=== PATIENT | male | born 1955 | race Caucasian/White ===

== ENCOUNTER → 2018-02-18 09:15 | Outpatient (CLI) | payer MEDICARE, SELFPAY | PROVIDERS: PCP Internal Medicine; Visit Provider Nurse Practitioner Adult Health | DX: G43.009 Migraine without aura, not intractable, without status migrainosus (principal); M54.2 Cervicalgia; G89.29 Other chronic pain | CPT/HCPCS: 64405 ==

== ENCOUNTER → 2018-03-25 09:07 | Outpatient (BNVA) | payer MEDICARE, SELFPAY | PROVIDERS: PCP Internal Medicine; Visit Provider Nurse Practitioner Adult Health | DX: R51 Headache (principal); M54.2 Cervicalgia; G89.29 Other chronic pain | CPT/HCPCS: 64405; NC ==

== ENCOUNTER → 2018-04-22 08:57 | Outpatient (BNVA) | payer MEDICARE, SELFPAY | PROVIDERS: Visit Provider Nurse Practitioner Adult Health | DX: G43.009 Migraine without aura, not intractable, without status migrainosus (principal); M54.2 Cervicalgia; G89.29 Other chronic pain; I10 Essential (primary) hypertension | CPT/HCPCS: 64405 ==

== ENCOUNTER → 2018-05-27 13:35 | Outpatient (BNVA) | payer MEDICARE, SELFPAY | PROVIDERS: PCP Internal Medicine; Visit Provider Psychiatry & Neurology Neurology | DX: R51 Headache (principal); I10 Essential (primary) hypertension | CPT/HCPCS: 64405 ==

== ENCOUNTER → 2018-06-17 09:35 | Outpatient (BNVA) | payer MEDICARE, SELFPAY | PROVIDERS: PCP Internal Medicine; Visit Provider Psychiatry & Neurology Neurology | DX: R51 Headache (principal); I10 Essential (primary) hypertension | CPT/HCPCS: 64405 ==

== ENCOUNTER → 2018-07-07 12:43 | Outpatient (BNVA) | payer MEDICARE, SELFPAY | PROVIDERS: PCP Internal Medicine; Visit Provider Psychiatry & Neurology Neurology | DX: R51 Headache (principal); M54.2 Cervicalgia; I10 Essential (primary) hypertension | CPT/HCPCS: 64405; J1885 ==

== ENCOUNTER → 2018-08-11 11:03 | Outpatient (BNVA) | payer MEDICARE, SELFPAY | PROVIDERS: PCP Internal Medicine; Visit Provider Nurse Practitioner Adult Health | DX: R51 Headache (principal); I10 Essential (primary) hypertension | CPT/HCPCS: 64405 ==

== ENCOUNTER → 2018-09-08 09:29 | Outpatient (BNVA) | payer MEDICARE, SELFPAY | PROVIDERS: PCP Internal Medicine; Visit Provider Nurse Practitioner Adult Health | DX: R51 Headache (principal); G89.29 Other chronic pain; I10 Essential (primary) hypertension | CPT/HCPCS: 64405; 99213 ==

== ENCOUNTER → 2018-10-07 11:40 | Outpatient (BNVA) | payer MEDICARE, SELFPAY | PROVIDERS: PCP Internal Medicine; Visit Provider Nurse Practitioner Adult Health | DX: R51 Headache (principal) | CPT/HCPCS: 64405 ==

== ENCOUNTER → 2018-11-01 09:55 | Outpatient (BNVA) | payer MEDICARE, SELFPAY | PROVIDERS: PCP Internal Medicine; Visit Provider Nurse Practitioner Adult Health | DX: R51 Headache (principal); M54.2 Cervicalgia | CPT/HCPCS: 64405 ==

== ENCOUNTER → 2018-12-01 13:01 | Outpatient (BNVA) | payer MEDICARE, SELFPAY | PROVIDERS: PCP Internal Medicine; Visit Provider Nurse Practitioner Adult Health | DX: R51 Headache (principal); M54.2 Cervicalgia | CPT/HCPCS: 64405 ==

== ENCOUNTER → 2019-01-12 09:05 | Outpatient (BNVA) | payer MEDICARE, SELFPAY | PROVIDERS: PCP Internal Medicine; Visit Provider Nurse Practitioner Adult Health | DX: R51 Headache (principal); M54.2 Cervicalgia | CPT/HCPCS: 64405 ==

== ENCOUNTER → 2019-02-07 12:53 | Outpatient (BNVA) | payer MEDICARE, SELFPAY | PROVIDERS: PCP Internal Medicine; Visit Provider Nurse Practitioner Adult Health | DX: R51 Headache (principal); I10 Essential (primary) hypertension | CPT/HCPCS: 64405 ==

== ENCOUNTER → 2019-03-09 09:26 | Outpatient (BNVA) | payer MEDICARE, SELFPAY | PROVIDERS: PCP Internal Medicine; Visit Provider Nurse Practitioner Adult Health | DX: R51 Headache (principal); M54.2 Cervicalgia; I10 Essential (primary) hypertension | CPT/HCPCS: 64405 ==

== ENCOUNTER → 2019-04-05 09:11 | Outpatient (BNVA) | payer MEDICARE, SELFPAY | PROVIDERS: PCP Internal Medicine; Visit Provider Nurse Practitioner Adult Health | DX: R51 Headache (principal); M54.2 Cervicalgia | CPT/HCPCS: 64405 ==

== ENCOUNTER → 2019-05-03 12:22 | Outpatient (BNVA) | payer MEDICARE, SELFPAY | PROVIDERS: PCP Internal Medicine; Referring Provider Internal Medicine; Visit Provider Nurse Practitioner Adult Health | DX: R51 Headache (principal); M54.2 Cervicalgia; G89.29 Other chronic pain; I10 Essential (primary) hypertension | CPT/HCPCS: 64405 ==

== ENCOUNTER → 2019-05-31 09:49 | Outpatient (BNVA) | payer MEDICARE, SELFPAY | PROVIDERS: PCP Internal Medicine; Referring Provider Internal Medicine; Visit Provider Nurse Practitioner Adult Health | DX: G43.009 Migraine without aura, not intractable, without status migrainosus (principal); I10 Essential (primary) hypertension; M54.2 Cervicalgia | CPT/HCPCS: 64405 ==

== ENCOUNTER → 2019-07-06 09:00 | Outpatient (BNVA) | payer MEDICARE, SELFPAY | PROVIDERS: PCP Internal Medicine; Referring Provider Internal Medicine; Visit Provider Nurse Practitioner Adult Health | DX: M54.2 Cervicalgia (principal); G89.29 Other chronic pain; R51 Headache | CPT/HCPCS: 64405; 99213 ==

== ENCOUNTER → 2019-08-03 08:28 | Outpatient (BNVA) | payer MEDICARE, SELFPAY | PROVIDERS: PCP Internal Medicine; Referring Provider Internal Medicine; Visit Provider Nurse Practitioner Adult Health | DX: R51 Headache (principal); M54.2 Cervicalgia; G89.29 Other chronic pain | CPT/HCPCS: 64405 ==

== ENCOUNTER 2019-08-29 11:02 | Outpatient (REF) | payer MEDICARE, SELFPAY ==
[2019-08-29 11:59] LABS: Anion Gap 9.3 mmol/L (3-11); BUN 17 mg/dL (7-18); CO2 28.7 mmol/L (21.0-32.0); CREATININE 0.96 mg/dL (0.70-1.30); Chloride 102 mmol/L (98-107); Glucose 107 mg/dL (74-106); NT-proBNP 14 pg/mL (<300); Potassium 4.4 mmol/L (3.5-5.1); Sodium 140 mmol/L (136-145)
[2019-08-29 13:06] LABS: HCT 46.4 % (40.0-50.0); HGB 15.3 g/dL (13.5-17.5); Mean Corpuscular Hemoglobin 29.4 pg (27.0-33.0); Mean Corpuscular Volume 89.2 fL (80-95); Mean Platelet Volume 10.4 fL (8.0-11.0); Platelet Count 248 x1000/uL (130-400); RBC Distribution Width 13.3 % (11.8-14.1); White Blood Cell Count 6.36 k/cumm (4.4-10.8)
[2019-08-29 15:22] LABS: Hemoglobin A1C 5.9 % (3.8-5.6)
[2019-08-30 11:00] LABS: Hepatitis C Ab w Rflx HCV PCR Negative (Negative)
== END 2019-08-29 11:22 ==
LOC: NCHCN 11:02
PROVIDERS: PCP Internal Medicine; Visit Provider Internal Medicine
DX: I25.10 Atherosclerotic heart disease of native coronary artery without angina pectoris (principal); R06.09 Other forms of dyspnea; R73.09 Other abnormal glucose; G62.9 Polyneuropathy, unspecified; M19.031 Primary osteoarthritis, right wrist; M50.10 Cervical disc disorder with radiculopathy, unspecified cervical region; M19.032 Primary osteoarthritis, left wrist
CPT/HCPCS: 80048; 85027; 86803; 83036; 83880

== ENCOUNTER → 2019-08-31 08:45 | Outpatient (BNVA) | payer MEDICARE, SELFPAY | PROVIDERS: PCP Internal Medicine; Referring Provider Internal Medicine; Visit Provider Nurse Practitioner Adult Health | DX: R51 Headache (principal); M54.2 Cervicalgia; G89.29 Other chronic pain | CPT/HCPCS: 64405 ==

== ENCOUNTER 2019-09-26 16:06 | Outpatient (REF) | payer MEDICARE, SELFPAY ==
[2019-09-26 20:59] LABS: Bacteria Negative HPF (Negative); C & S Indicated? No; Casts Negative LPF (Negative); Crystals Negative HPF (Negative); Epithelial Cells Rare HPF (Negative); Mucus Negative (Negative); Other Cells Negative (Negative); RBC 0-2 HPF (0-2); WBC 0-2 HPF (0-5)
== END 2019-09-26 16:26 ==
LOC: NCHCN 16:06
PROVIDERS: PCP Internal Medicine; Visit Provider Specialist/Technologist Athletic Trainer
DX: R10.9 Unspecified abdominal pain (principal)
CPT/HCPCS: 81015

== ENCOUNTER → 2019-09-28 08:14 | Outpatient (BNVA) | payer MEDICARE, SELFPAY | PROVIDERS: PCP Internal Medicine; Referring Provider Internal Medicine; Visit Provider Nurse Practitioner Adult Health | DX: M54.2 Cervicalgia (principal); G89.29 Other chronic pain; R51 Headache; I10 Essential (primary) hypertension | CPT/HCPCS: 64405 ==

== ENCOUNTER → 2019-10-26 09:50 | Outpatient (BNVA) | payer MEDICARE, SELFPAY | PROVIDERS: PCP Internal Medicine; Referring Provider Internal Medicine; Visit Provider Nurse Practitioner Adult Health | DX: M54.2 Cervicalgia (principal); G89.29 Other chronic pain; R51 Headache; I10 Essential (primary) hypertension | CPT/HCPCS: 64405; 99212 ==

== ENCOUNTER 2019-11-13 08:53 | Emergency (ER) | payer MEDICARE, SELFPAY ==
[2019-11-13 08:59] VITALS: BP 149/97; PULSE 80; TEMP 37.1; O2SAT 100
--- NOTE | 2019-11-13 09:18 | ED.GENADUL_ITS ---
Discharge Plan Disposition Patient Disposition: HOME Condition: Stable Discharge Details Chief Complaint: Orthopedic Clinical Impression: Acute pain of right hip, Sciatica Primary Care Provider: Zack Edge ED Provider: Lucina Cortes Home Meds and New Rx's Prescriptions: New prednisone 20 mg tablet 40 mg PO DAILY Qty: 10 RF: 0 No Action hydrocodone-acetaminophen 1 EACH tablet 1 ea PO PRN RF: 0 nitroglycerin 0.4 MG tablet, sublingual 0.4 mg Sublingual PRNRF: 0 aspirin 81 MG tablet,chewable 81 mg CH DAILY RF: 0 docosahexaenoic acid-epa [Fish Oil] 1 EACH capsule 1,000 mg PO BID RF: 0 xgtyarmmdcem-Bb-nvhh-minerals [ESSENTIAL Daily] 1 EACH tablet 1 ea PO DAILY RF: 0 glucosamine sulf-chondroitinSA 1 EACH capsule RF: 0 gabapentin 800 MG tablet 800 mg PO TID RF: 0 metoprolol succinate 25 MG tablet extended release 24 hr 25 mg PO HS RF: 0 amitriptyline 25 MG tablet 25 mg PO QPM Qty: 90 RF: 0 Discharge Instructions Instructions: Sciatica (ED), Leg Pain (ED) Additional Instructions: Ice to the hip as discussed 3-5 times a day for 15 minutes daily. Rest activities as tolerated. Stretching as tolerated. Use steroid as prescribed with food for inflammatory pain as discussed. Use only for 5 days. This can cause difficulty sleeping and agitation as discussed. Your x-rays do reveal mild degenerative changes in both hips and your lower back. Recheck with PCP if not improving in the next 5 days. Continue your gabapentin and pain medication as needed as previously prescribed. Return for any worsening, concerns or alarming symptoms as discussed sooner if needed. Specifically observe for any weakness in the leg, difficulty walking, inability to lift your foot, severe intolerable pain or worsening numbness. Medical Decision Making Is a 63-year-old patient presenting to the emergency room for complaints of right hip pain which began in the last 2 weeks after beginning a walking regimen. Patient reporting right lateral hip pain with radiation to the thigh. No radiation beyond the knee initially noted. Denies new numbness, tingling or weakness. History of peripheral neuropathy as a baseline seemingly unchanged. Patient reports after walking on hard level ground he found pain was significantly worse when ambulating and thereafter lasting approximately 1 day then improving on day 3 and he would walk again in the cycle of return. Patient has found that pain is minimal or significantly improved when walking on uneven ground which is softer. Patient denies any specific fall injury or trauma. Patient reports that in the last 3 days pain has been more persistent. Patient reports increasing radiating pain in the last 3 days compared to onset a few weeks ago. Pain now radiating beyond the thigh including the knee and extending to the foot. Patient does have history of sciatica in the past. Patient does report transient swelling of his right ankle which has since improved. Patient reports he does take daily gabapentin as well as Vicodin. Patient has been compliant with these medications which are transiently helpful to improve pain. Patient has been able to sleep at night. Patient seeking evaluation due to persistence of pain. He did see chiropractic evaluation 2 days ago which was somewhat helpful, but not fully relieving of pain. On exam patient does have mild notable tenderness with palpation over the right hip with nothing to indicate infection of the hip, No overlying skin changes. Patient has no lumbar tenderness on exam. Patient does have diminished his reflexes at the patella level bilaterally which is symmetrical. Patient reports this is his baseline has been noted by PCP several times in the past. Patient does have history of peripheral neuropathy. Patient has no focal foot drop or indications of neurosurgical emergency at this time. Discussed plan of care did offer x-ray of the hip and patient consents to at this time. X-ray of the hip reveals bilateral degenerative changes of the hips including the lumbar spine. No evidence of acute fracture or malalignment or dislocation Discussed x-ray results with the patient. Did recommend a course of prednisone in addition to his regimen of gabapentin and Vicodin. We did discuss the risks and benefits of using prednisone and a short-term burst of 5 days. Also recommended rest and icing. We will patient agrees with current plan of care. Discussed expectations of improvement. Patient reports his understanding. Feels comfortable discharge home at this time. Patient using a single crutch for assistance and also has canes at home if needed. Patient feels comfortable these assistive modalities does not feel he needs any additional devices. The patient was stable and requested discharge. Prior to discharge, my usual and customary return precautions were reviewed with the patient - this included follow-up instructions and reasons to return to the Emergency Department if conditions worsens, does not improve as expected, or other new concerns arise. HPI General Date/Time Provider Initiated Documentation: 11/13/19 08:53 . HPI Narrative: Is a 63-year-old gentleman presenting for complaints of right hip pain. Patient reports onset of right hip pain for the last 2 weeks. Patient reports he began walking for exercise 2 weeks ago. Patient reports he had onset of right hip pain after walking approximately 1 to 2 miles. Patient reports pain would last approximately 1 day then improved fully then he would walk again and the cycle would repeat itself. Patient reports initially he had pain on the lateral aspect of his hip radiating into his buttocks and at the lateral aspect of his thigh sparing knee distally. Patient reports in the last 3 days pain has become more constant not fully relieving with increasing radiation including his lower leg and foot. Patient reports he is chronically using both gabapentin and Vicodin both of which she has been using, he has mildly increased his Vicodin dose for comfort. Patient reports these medications are helpful in providing some relief of pain and making pain more tolerable able to sleep at night. Patient is concerned with the persistence of pain lack of relief in the last few days. Patient denies any specific injury. Patient does report mild lower back pain. Patient does have chronic degenerative changes in multiple joints including his neck and back. Patient has had imaging of his cervical spine historically. Patient denies any hip imaging. Patient does report a history of peripheral neuropathy. Patient does report some increase in numbness in the right leg. Patient denies any focal weakness in the leg. He has been able to ambulate. No tripping gait. Patient denies obvious foot drop. Patient did see chiropractor 2 days ago with mild relief in pain. No fevers, chills, nausea, vomiting. No other concerns or complaints at this time. Related Data Home Medications Medication Instructions Recorded Confirmed aspirin 81 mg CH DAILY 09/17/12 05/27/18 docosahexaenoic acid-epa [Fish Oil] 1,000 mg PO BID 09/17/12 05/27/18 glucosamine sulf-chondroitinSA 09/17/12 05/27/18 xtluloywbfqv-Vv-ajjx-minerals 1 ea PO DAILY 09/17/12 05/27/18 [ESSENTIAL Daily] nitroglycerin 0.4 mg SUBLINGUAL PRN 09/17/12 05/27/18 gabapentin 800 mg PO TID 03/05/15 05/27/18 amitriptyline 25 mg PO QPM #90 tab 06/23/16 05/27/18 metoprolol succinate 25 mg PO HS 06/23/16 05/27/18 hydrocodone-acetaminophen 1 ea PO PRN tab-cap 03/16/17 05/27/18 prednisone 40 mg PO DAILY #10 tab 11/13/19 Previous Rx's Medication Instructions Recorded amitriptyline 25 mg PO QPM #90 tab 06/23/16 prednisone 40 mg PO DAILY #10 tab 11/13/19 Allergies Allergy/AdvReac Type Severity Reaction Status Date / Time ciprofloxacin Allergy Intermediate RASH/FEVER Unverified 11/13/19 09:07 doxepin AdvReac Severe Unverified 11/13/19 09:07 Metronidazole HCl AdvReac Severe Dizziness/L Unverified 11/13/19 09:07 [From Flagyl] ightheade codeine [Codeine] AdvReac Intermediate Nausea Unverified 11/13/19 09:07 gemfibrozil AdvReac Intermediate Skin Rash Unverified 11/13/19 09:07 Aftgatl-Nke-Lle Reductase AdvReac Intermediate MUSCLE PAIN Unverified 11/13/19 09:07 Inhibitor General Stated Complaint: Orthopedic ALISSA: 4 Review of Systems All systems reviewed & are unremarkable except as noted in HPI and below Constitutional Constitutional: Denies chills, Denies fatigue, Denies fever(s), Denies headache(s), Denies lethargy, Denies malaise and Denies weakness ENT Ears, Nose, Mouth, and Throat: Denies headache(s), Denies neck pain and Denies disequilibrium Musculoskeletal Musculoskeletal: Reports back pain (mild lower back pain), Denies deformity, Reports arthralgias, Denies joint swelling, Denies limited range of motion, Denies muscle weakness, Denies neck pain, Reports numbness, Reports radiating pain into limb, Denies stiffness, Denies tingling and Reports other (limping gait) Integumentary/Breasts Skin/Breast: Denies rash, Denies skin swelling and Denies wounds Neurologic Neurologic: Denies headache(s), Denies localized weakness, Reports numbness, Reports radicular pain, Denies tingling, Denies disequilibrium and Denies wea kness Endocrine Endocrine: Denies fatigue [facility] Medical History Bilateral carpal tunnel syndrome (Chronic) Cervical radiculopathy (Chronic) Chronic daily headache (Chronic) Chronic neck and back pain (Chronic) Chronic neck pain (Acute) Colon polyps (Inactive) 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 Well hydrated. Alert and oriented. Neck: FROM w/o pain. MUSCULOSKELETAL: limping Gait, using assisted crutch. FROM of all extremities. Distal neurovascularly intact. Sensation intact distally. No sciatic tenderness with palpation of sciatic notch. Tenderness with palpation of the right lat eral hip overlying the joint. No erythema warmth or swelling present at the hip joint. Full range of motion present in the right hip. Mild pain with straight leg raise against resistance in lateral range of motion against resistance. Able to internally and externally rotate without significant pain. Strength intact distally. No foot drop. DTRs are diminished bilaterally at the patella however this is well known to the patient. No distal edema. Back: No cervical, thoracic or lumbar pain with palpation. No significant SI joint tenderness. SKIN: Normal. Dry. No rashes. Few areas of excoriation noted at the ankle and lateral ambriz however patient reports this is chronic due to his neuropathy and unchanged. No sign of secondary infection NEURO: Alert and awake. Speech clear. PSYCH: Normal affect. Cooperative. Course Vital Signs Vital signs: Vital Signs Temperature 37.1 C 11/13/19 08:59 Pulse 80 11/13/19 08:59 Blood Pressure 149/97 H 11/13/19 08:59 Pulse Oximetry 100 11/13/19 08:59 Temperature 37.1 C 11/13/19 08:59 Temperature Source Oral 11/13/19 08:59 Pulse 80 11/13/19 08:59 Respiratory Effort Non-Labored 11/13/19 09:05 Blood Pressure 149/97 H 11/13/19 08:59 Blood Pressure Position Sitting 11/13/19 08:59 Pulse Oximetry 100 11/13/19 08:59 Oxygen Delivery Method Room Air 11/13/19 08:59 Oxygen Flow Rate 0 11/13/19 08:59 Pain Level 10 11/13/19 09:06
--- NOTE | 2019-11-13 09:25 | DI.RAD_ITS ---
EXAM: XR HIP RT COMPLETE AP PELVIS CLINICAL HISTORY: pain, right hip. TECHNIQUE: 2D digital imaging was performed. COMPARISON: No exams were available for comparison FINDINGS: BONES: No acute fracture is present. No bony destructive lesion is seen. JOINTS: No dislocation present. Mild degenerative changes are seen in the hips bilaterally. Findings include joint space narrowing, subchondral sclerosis and periarticular spurring. There are degenera tive changes seen in the visualized portion of the lower lumbar spine. SOFT TISSUE: Normal. Vascular calcifications are seen in the soft tissues. IMPRESSION: 1. No acute fracture or dislocation. 2. Degenerative changes seen in the hips and lower lumbar spine. DATA REPOSITORY: RADIATION DOSE DELIVERED:
--- NOTE | 2019-11-13 09:36 | DI.VRAD_ITS ---
PROCEDURE INFORMATION: Exam: XR Right Hip with Pelvis when Performed Exam date and time: 11/13/2019 9:28 AM Age: 63 years old Clinical indication: Patient HX: Right hip pain, no known injury, ongoing hip pain since June, increasing RT hip pain. TECHNIQUE: Imaging protocol: XR Right hip with pelvis when performed. Views: 2 or 3 views. COMPARISON: CT ABD PELVIS WITH CONTRAST 01/29/2015 10:31 AM FINDINGS: Bones/joints: Degenerative changes in both hips and lumbar spine There is no evidence of acute fracture.There is no evidence of malalignment or dislocation. Soft tissues: Unremarkable. IMPRESSION: There is no evidence of acute fracture.There is no evidence of malalignment or dislocation. Dictated and Authenticated by: Leonides Fermin MD. Ordering:MICHELLE Verdugo MD
== END 2019-11-13 10:34 | disposition home or self-care (01) ==
PROVIDERS: Emergency Provider Physician Assistant; PCP Internal Medicine
DX: M25.551 Pain in right hip (principal); M54.41 Lumbago with sciatica, right side; I10 Essential (primary) hypertension
CPT/HCPCS: 99284; 73502; 99283

== ENCOUNTER → 2019-11-23 10:08 | Outpatient (BNVA) | payer MEDICARE, SELFPAY | PROVIDERS: PCP Internal Medicine; Referring Provider Internal Medicine; Visit Provider Nurse Practitioner Adult Health | DX: M54.2 Cervicalgia (principal); G89.29 Other chronic pain; R51 Headache | CPT/HCPCS: 64405 ==

== ENCOUNTER → 2019-12-21 10:10 | Outpatient (BNVA) | payer MEDICARE, SELFPAY | PROVIDERS: PCP Internal Medicine; Referring Provider Internal Medicine; Visit Provider Nurse Practitioner Adult Health | DX: R51 Headache (principal); M54.2 Cervicalgia; G89.29 Other chronic pain; I10 Essential (primary) hypertension | CPT/HCPCS: 64405; 99213 ==

== ENCOUNTER → 2020-01-18 08:16 | Outpatient (BNVA) | payer MEDICARE, SELFPAY | PROVIDERS: PCP Internal Medicine; Referring Provider Internal Medicine; Visit Provider Nurse Practitioner Adult Health | DX: M54.2 Cervicalgia (principal); G89.29 Other chronic pain; R51 Headache | CPT/HCPCS: 64405 ==

== ENCOUNTER → 2020-02-07 08:22 | Outpatient (BNVA) | payer MEDICARE, SELFPAY | PROVIDERS: PCP Internal Medicine; Referring Provider Internal Medicine; Visit Provider Nurse Practitioner Adult Health | DX: M54.2 Cervicalgia (principal); R51 Headache; G89.29 Other chronic pain | CPT/HCPCS: 64405 ==

== ENCOUNTER → 2020-03-06 08:51 | Outpatient (BNVA) | payer MEDICARE, SELFPAY | PROVIDERS: PCP Internal Medicine; Referring Provider Internal Medicine; Visit Provider Nurse Practitioner Adult Health | DX: M54.2 Cervicalgia (principal); I10 Essential (primary) hypertension; G89.29 Other chronic pain | CPT/HCPCS: 64405 ==

== ENCOUNTER → 2020-04-04 08:24 | Outpatient (BNVA) | payer MEDICARE, SELFPAY | PROVIDERS: PCP Internal Medicine; Referring Provider Internal Medicine; Visit Provider Nurse Practitioner Adult Health | DX: R51 Headache (principal); M54.2 Cervicalgia; G89.29 Other chronic pain | CPT/HCPCS: 64405 ==

== ENCOUNTER → 2020-05-03 12:22 | Outpatient (BNVA) | payer MEDICARE, SELFPAY | PROVIDERS: PCP Internal Medicine; Referring Provider Internal Medicine; Visit Provider Nurse Practitioner Adult Health | DX: M54.2 Cervicalgia (principal); G89.29 Other chronic pain | CPT/HCPCS: 64405 ==

== ENCOUNTER → 2020-05-29 10:24 | Outpatient (BNVA) | payer MEDICARE, SELFPAY | PROVIDERS: PCP Internal Medicine; Referring Provider Internal Medicine; Visit Provider Nurse Practitioner Adult Health | DX: M54.2 Cervicalgia (principal); G89.29 Other chronic pain; R51 Headache; I10 Essential (primary) hypertension | CPT/HCPCS: 64405 ==

== ENCOUNTER → 2020-07-02 11:03 | Outpatient (BNVA) | payer MEDICARE, SELFPAY | PROVIDERS: PCP Internal Medicine; Referring Provider Internal Medicine; Visit Provider Nurse Practitioner Adult Health | DX: M54.2 Cervicalgia (principal); G89.29 Other chronic pain; R51 Headache; R20.2 Paresthesia of skin | CPT/HCPCS: 64405; 99213 ==

== ENCOUNTER → 2020-08-01 10:19 | Outpatient (BNVA) | payer MEDICARE, SELFPAY | PROVIDERS: PCP Internal Medicine; Referring Provider Internal Medicine; Visit Provider Nurse Practitioner Adult Health | DX: M54.2 Cervicalgia (principal); G89.29 Other chronic pain; R20.2 Paresthesia of skin; G62.9 Polyneuropathy, unspecified | CPT/HCPCS: 64405; 99214; 99215 ==

== ENCOUNTER 2020-09-03 16:24 | Outpatient (REF) | payer MEDICARE, SELFPAY ==
[2020-09-03 13:47] LABS: Hemoglobin A1C 5.8 % (<5.7)
== END 2020-09-03 16:25 | disposition home or self-care (01) ==
LOC: NCHCN 16:24
PROVIDERS: PCP Internal Medicine; Visit Provider Internal Medicine
DX: R73.03 Prediabetes (principal)
CPT/HCPCS: 83036

== ENCOUNTER → 2020-09-04 09:54 | Outpatient (BNVA) | payer MEDICARE, SELFPAY | PROVIDERS: PCP Internal Medicine; Referring Provider Internal Medicine; Visit Provider Nurse Practitioner Adult Health | DX: M54.2 Cervicalgia (principal); G89.29 Other chronic pain; R51.9 Headache, unspecified | CPT/HCPCS: 64405 ==

== ENCOUNTER → 2020-10-02 13:21 | Outpatient (BNVA) | payer MEDICARE, SELFPAY | PROVIDERS: PCP Internal Medicine; Referring Provider Internal Medicine; Visit Provider Nurse Practitioner Adult Health | DX: M54.2 Cervicalgia (principal); G89.29 Other chronic pain | CPT/HCPCS: 64405 ==

== ENCOUNTER → 2020-10-31 14:02 | Outpatient (BNVA) | payer MEDICARE, SELFPAY | PROVIDERS: PCP Internal Medicine; Referring Provider Internal Medicine; Visit Provider Nurse Practitioner Adult Health | DX: M54.2 Cervicalgia (principal); G89.29 Other chronic pain | CPT/HCPCS: 64405 ==

== ENCOUNTER → 2020-11-28 10:53 | Outpatient (BNVA) | payer MEDICARE, SELFPAY | PROVIDERS: PCP Internal Medicine; Referring Provider Internal Medicine; Visit Provider Nurse Practitioner Adult Health | DX: G44.209 Tension-type headache, unspecified, not intractable | CPT/HCPCS: 64405 ==

== ENCOUNTER → 2020-12-26 09:53 | Outpatient (BNVA) | payer MEDICARE, SELFPAY | PROVIDERS: PCP Internal Medicine; Referring Provider Internal Medicine; Visit Provider Nurse Practitioner Adult Health | DX: R51.9 Headache, unspecified (principal); G89.29 Other chronic pain | CPT/HCPCS: 64405 ==

== ENCOUNTER → 2021-01-23 14:23 | Outpatient (BNVA) | payer MEDICARE, SELFPAY | PROVIDERS: PCP Internal Medicine; Referring Provider Internal Medicine; Visit Provider Nurse Practitioner Adult Health | DX: R51.9 Headache, unspecified (principal) | CPT/HCPCS: 64405 ==

== ENCOUNTER → 2021-03-04 08:18 | Outpatient (BNVA) | payer MEDICARE, SELFPAY | PROVIDERS: PCP Internal Medicine; Referring Provider Internal Medicine; Visit Provider Nurse Practitioner Adult Health | DX: R51.9 Headache, unspecified (principal); M54.5 Low back pain; G89.29 Other chronic pain | CPT/HCPCS: 64405 ==

== ENCOUNTER → 2021-04-01 08:18 | Outpatient (BNVA) | payer MEDICARE, SELFPAY | PROVIDERS: PCP Internal Medicine; Referring Provider Internal Medicine; Visit Provider Nurse Practitioner Adult Health | DX: G44.1 Vascular headache, not elsewhere classified (principal) | CPT/HCPCS: 64405 ==

== ENCOUNTER → 2021-04-30 08:35 | Outpatient (BNVA) | payer MEDICARE, SELFPAY | PROVIDERS: PCP Internal Medicine; Referring Provider Internal Medicine; Visit Provider Psychiatry & Neurology Neurology | DX: M54.2 Cervicalgia (principal); G89.29 Other chronic pain | CPT/HCPCS: 64405 ==

== ENCOUNTER → 2021-05-28 08:08 | Outpatient (BNVA) | payer MEDICARE, SELFPAY | PROVIDERS: PCP Internal Medicine; Referring Provider Internal Medicine; Visit Provider Psychiatry & Neurology Neurology | DX: M54.2 Cervicalgia (principal); G89.29 Other chronic pain | CPT/HCPCS: 64405 ==

== ENCOUNTER → 2021-06-24 12:30 | Outpatient (BNVA) | payer MEDICARE, SELFPAY | PROVIDERS: PCP Internal Medicine; Referring Provider Internal Medicine; Visit Provider Psychiatry & Neurology Neurology | DX: M54.2 Cervicalgia (principal); G89.29 Other chronic pain | CPT/HCPCS: 64405 ==

== ENCOUNTER → 2021-07-22 11:05 | Outpatient (BNVA) | payer OTHER, SELFPAY | PROVIDERS: PCP Internal Medicine; Referring Provider Internal Medicine; Visit Provider Psychiatry & Neurology Neurology | DX: M54.2 Cervicalgia (principal); G89.29 Other chronic pain; R51.9 Headache, unspecified | CPT/HCPCS: 64405 ==

== ENCOUNTER → 2021-07-31 10:53 | Outpatient (BNVA) | payer OTHER, SELFPAY | PROVIDERS: PCP Internal Medicine; Referring Provider Internal Medicine; Visit Provider Nurse Practitioner Adult Health | DX: M54.2 Cervicalgia (principal); R51.9 Headache, unspecified; G89.29 Other chronic pain | CPT/HCPCS: 64405; 99213 ==

== ENCOUNTER → 2021-08-22 10:52 | Outpatient (BNVA) | payer OTHER, SELFPAY | PROVIDERS: PCP Internal Medicine; Referring Provider Internal Medicine; Visit Provider Nurse Practitioner Adult Health | DX: M54.2 Cervicalgia (principal); G89.29 Other chronic pain | CPT/HCPCS: 64405 ==

== ENCOUNTER 2021-09-18 15:41 | Outpatient (REF) | payer OTHER, SELFPAY ==
[2021-09-18 14:10] LABS: Anion Gap 8.1 mmol/L (3-11); BUN 9 mg/dL (7-18); CO2 29.9 mmol/L (21.0-32.0); CREATININE 0.9 mg/dL (0.70-1.30); Calcium 9.7 mg/dL (8.5-10.1); Chloride 103 mmol/L (98-107); Glucose 106 mg/dL (74-106); Potassium 5.7 mmol/L (3.5-5.1); Sodium 141 mmol/L (136-145)
[2021-09-18 15:08] LABS: Hemoglobin A1C 5.8 % (<5.7)
== END 2021-09-18 15:42 | disposition home or self-care (01) ==
LOC: NCHCN 15:41
PROVIDERS: PCP Internal Medicine; Visit Provider Internal Medicine
DX: R73.03 Prediabetes (principal); I25.10 Atherosclerotic heart disease of native coronary artery without angina pectoris; R03.0 Elevated blood-pressure reading, without diagnosis of hypertension; M50.10 Cervical disc disorder with radiculopathy, unspecified cervical region; M19.039 Primary osteoarthritis, unspecified wrist
CPT/HCPCS: 80048; 83036

== ENCOUNTER → 2021-09-19 10:43 | Outpatient (BNVA) | payer OTHER, SELFPAY | PROVIDERS: PCP Internal Medicine; Visit Provider Nurse Practitioner Adult Health | DX: R51.9 Headache, unspecified (principal); G89.29 Other chronic pain | CPT/HCPCS: 64405 ==

== ENCOUNTER 2021-10-02 14:36 | Outpatient (REF) | payer OTHER, SELFPAY ==
[2021-10-02 15:21] LABS: Potassium 5.5 mmol/L (3.5-5.1)
== END 2021-10-02 14:37 | disposition home or self-care (01) ==
LOC: NCHCN 14:36
PROVIDERS: PCP Internal Medicine; Visit Provider Internal Medicine
DX: R03.0 Elevated blood-pressure reading, without diagnosis of hypertension (principal)
CPT/HCPCS: 84132

== ENCOUNTER → 2021-10-17 09:19 | Outpatient (BNVA) | payer OTHER, SELFPAY | PROVIDERS: PCP Internal Medicine; Visit Provider Nurse Practitioner Adult Health | DX: R51.9 Headache, unspecified (principal); M54.2 Cervicalgia; G89.29 Other chronic pain | CPT/HCPCS: 64405 ==

== ENCOUNTER → 2021-11-14 12:24 | Outpatient (BNVA) | payer OTHER, SELFPAY | PROVIDERS: PCP Internal Medicine; Referring Provider Internal Medicine; Visit Provider Nurse Practitioner Adult Health | DX: R51.9 Headache, unspecified (principal); M54.2 Cervicalgia; G89.29 Other chronic pain | CPT/HCPCS: 64405; 99212 ==

== ENCOUNTER → 2021-12-12 15:08 | Outpatient (BNVA) | payer OTHER, SELFPAY | PROVIDERS: PCP Internal Medicine; Referring Provider Internal Medicine; Visit Provider Nurse Practitioner Adult Health | DX: M54.2 Cervicalgia (principal); G89.29 Other chronic pain | CPT/HCPCS: 64405; 99212 ==

== ENCOUNTER 2021-12-23 10:32 | Outpatient (REF) | payer OTHER, SELFPAY ==
[2021-12-23 15:22] LABS: Anion Gap 10.4 mmol/L (3-11); BUN 15 mg/dL (7-18); CO2 28.6 mmol/L (21.0-32.0); CREATININE 0.8 mg/dL (0.70-1.30); Calcium 9.4 mg/dL (8.5-10.1); Chloride 102 mmol/L (98-107); Glucose 107 mg/dL (74-106); Potassium 5.6 mmol/L (3.5-5.1); Sodium 141 mmol/L (136-145)
== END 2021-12-23 10:33 | disposition home or self-care (01) ==
LOC: NCHCN 10:32
PROVIDERS: PCP Internal Medicine; Visit Provider Internal Medicine
DX: I25.10 Atherosclerotic heart disease of native coronary artery without angina pectoris (principal); R03.0 Elevated blood-pressure reading, without diagnosis of hypertension; R51.9 Headache, unspecified
CPT/HCPCS: 80048

== ENCOUNTER → 2022-01-09 08:49 | Outpatient (BNVA) | payer OTHER, SELFPAY | PROVIDERS: PCP Internal Medicine; Referring Provider Internal Medicine; Visit Provider Nurse Practitioner Adult Health | DX: M54.2 Cervicalgia (principal); G89.29 Other chronic pain | CPT/HCPCS: 64405 ==

== ENCOUNTER → 2022-02-06 10:26 | Outpatient (BNVA) | payer OTHER, SELFPAY | PROVIDERS: PCP Internal Medicine; Referring Provider Internal Medicine; Visit Provider Nurse Practitioner Adult Health | DX: R51.9 Headache, unspecified (principal); M54.2 Cervicalgia; G89.29 Other chronic pain | CPT/HCPCS: 64405 ==

== ENCOUNTER → 2022-03-13 13:58 | Outpatient (BNVA) | payer OTHER, SELFPAY | PROVIDERS: PCP Internal Medicine; Referring Provider Internal Medicine; Visit Provider Nurse Practitioner Adult Health | DX: M54.2 Cervicalgia (principal); G89.29 Other chronic pain | CPT/HCPCS: 64405 ==

== ENCOUNTER → 2022-04-09 09:21 | Outpatient (BNVA) | payer OTHER, SELFPAY | PROVIDERS: PCP Internal Medicine; Referring Provider Internal Medicine; Visit Provider Nurse Practitioner Adult Health | DX: M54.2 Cervicalgia (principal); G89.29 Other chronic pain | CPT/HCPCS: 64405 ==

== ENCOUNTER → 2022-05-07 13:06 | Outpatient (BNVA) | payer OTHER, SELFPAY | PROVIDERS: PCP Internal Medicine; Referring Provider Internal Medicine; Visit Provider Nurse Practitioner Adult Health | DX: M54.2 Cervicalgia (principal); G89.29 Other chronic pain | CPT/HCPCS: 64405 ==

== ENCOUNTER → 2022-06-04 07:32 | Outpatient (BNVA) | payer OTHER, SELFPAY | PROVIDERS: PCP Internal Medicine; Referring Provider Internal Medicine; Visit Provider Surgery | DX: Z12.11 Encounter for screening for malignant neoplasm of colon (principal) ==

== ENCOUNTER → 2022-06-04 08:11 | Outpatient (BNVA) | payer OTHER, SELFPAY | PROVIDERS: PCP Internal Medicine; Referring Provider Internal Medicine; Visit Provider Nurse Practitioner Adult Health | DX: R51.9 Headache, unspecified (principal); M54.2 Cervicalgia; G89.29 Other chronic pain | CPT/HCPCS: 64405 ==

== ENCOUNTER 2022-06-19 08:13 | Day surgery (SDC) | payer OTHER, SELFPAY ==
--- NOTE | 2022-06-18 17:18 | W.PM.DSUDISC ---
Date of service: 06/19/22 Time of Service: 10:29 Discharge Plan Disposition Patient Disposition: HOME Condition: Good Discharge Details Attending Provider: Barney Coles Primary Care Provider: Zack Edge Home Meds and New Rx's Prescriptions: Continued ibuprofen 200 mg tablet 400 mg PO Q6H PRN ascorbic acid (vitamin C) 1,000 mg tablet 1 g PO DAILY hydrocodone-acetaminophen 1 EACH tablet 1 ea PO TID PRN nitroglycerin 0.4 MG tablet, sublingual 0.4 mg Sublingual USEASDIRECTD PRN Label Comments: 03/05/15 Pt states he may have taken nitro in about a month ago for chest pain. PG Fish Oil 1 EACH capsule 1,000 mg PO BID ESSENTIAL Daily 1 EACH tablet 1 ea PO DAILY glucosamine sulf-chondroitinSA 1 EACH capsule 1 cap PO DAILY PRN Discontinued polyethylene glycol 3350 17 gram/dose powder 238 g PO ONCE Qty: 238 0RF Rx Instructions: take per colonoscopy instructions bisacodyl [Dulcolax (bisacodyl)] 5 mg tablet,delayed release (DR/EC) 5 mg PO ONCE Qty: 4 0RF Rx Instructions: take per colonoscopy instructions Discharge Instructions Instructions: Colorectal Polyps (GEN) Additional Instructions: 1. If tolerated, consume a soft, low fiber diet for 1-2 days. 2[address] Do not drive, drink alcohol, operate machinery, make critical decisions, or do activities that require coordination or balance for 24 hours. 3. Because air was put into your colon during the procedure, expelling air from your rectum (passing gas or farting) is normal. 4. You may not have a bowel movement for 1-3 days because of the colonoscopy prep. This is normal. 5. Go directly to the emergency room if you notice any of the following: Develop chills (warm to touch), or if you have a thermometer and your temperature is above 101 Difficulty breathing or difficultly swallowing Persistent vomiting Severe abdominal pain, other than gas cramps Severe chest pain Black, tarry stools Any bleeding ? exceeding one tablespoon 6. Call your physician if the site where your intravenous was started becomes red, swollen, painful, and warm to touch. 7. Your physician has reviewed your pre-procedure medications. Please continue to take those medications as previously ordered. You will be given specific information/education regarding any changes to your medications before leaving. Activity:: Activity as Tolerated Diet:: As Tolerated DS: Diagnosis Discharge Diagnosis (1) Colon polyps: Status: Inactive Asessment and Plan: I will contact you about the pathology results once the biopsies are completed
--- NOTE | 2022-06-18 17:19 | W.COLOREPORT ---
Date of service: 06/19/22 Time of Service: 10:30 Colonoscopy Report Date of procedure: 06/19/22 Pre-op diagnosis general: Screening colonoscopy for routine health maintenance Post-op diagnosis procedure note: other (Colon polyp at 95 cm) Procedure: Screening colonoscopy Surgeon: Barney Coles Anesthesia Type: General:No Airway Estimated blood loss (mL): 10 Pathology: other (Colon polyp at 95 cm) Complications: None Disposition: same day Indications: Lamberto is a 66-year-old male following up with his second screening colonoscopy Prep: Miralax/Dulcolax Procedure Start Time: 09:57 Procedure End Time: 10:14 Retraction Time: 13 Findings: Colon polyp at 95 cm Procedure Description: After the induction of monitored anesthetic care, and with the patient in left lateral decubitus position, I began by performing an external anorectal exam.? Perineum and skin were normal, as was the anal verge.? There was evidence of external hemorrhoids.? Next, I performed a digital rectal exam.? I did appreciate any abnormal findings.? Next, I advanced a colonoscope into the rectal vault.? I performed retroflexion.? This was normal.? Using insufflation, I then advanced the colonoscope beyond the rectal folds and into the sigmoid colon before advancing towards the cecum.? The quality of the prep was excellent.? The scope was noted to be in the cecum by identification of the ileocecal valve and appendiceal orifice.?Around 95 cm from the anal verge I identified a 0.5 cm polyp. ?It appeared sessile in character. ?I was able to remove this with a cold forcep polypectomy. ?I examined the site, and there was minimal bleeding. ?Once this was completed, I continued to withdraw the scope and examine the remainder of the colonic mucosa. I then began withdrawing the colonoscope using repeated irrigation as necessary for full evaluation of the colonic mucosa. ?Once the scope was withdrawn to the level of the rectum, great care was taken to examine portions of the rectal folds.? Finally, the scope was withdrawn and the patient was brought to the same-day surgery recovery unit as the anesthetic wore off. ?The findings and instructions were shared with the patient prior to discharge.
[2022-06-19 08:51] VITALS: BP 122/89; PULSE 71; RESP 18; TEMP 36.5; O2SAT 98
[2022-06-19] MEDS: Lactated Ringers 1,000 ML 80 ML IV (09:10)
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
[2022-06-19 09:46] VITALS: BMI 24.8
--- NOTE | 2022-06-19 10:05 | BOWEL_PTH ---
PATIENT: Lamberto Franco LOC: [facility] U#:[id number] AGE/SX: 66/M ROOM: RE06/19/[address]: Barney Coles MD : [id number] BED: DIS: 06/19/2022 SPEC #: [id number] RECD: 06/19/22 13:10 STATUS: SHANNAN RE #: [id number] MADONNA: 06/19/22 10:[address]: Barney Coles DEPT: Surgical Specimen RECD BY: Karen Encarnacion ENTERED: 06/19/22 13:11 SP TYPE: Bowel OTHR DR: Zack Edge Tissues: 1 - BIOPSY BOWEL Procedures: GROSS AND MICRO LEVEL 4 Comments: [id number]
[2022-06-19 10:24] VITALS: BP 110/81; PULSE 56; RESP 17; TEMP 36.5; O2SAT 96
[2022-06-19 10:48] VITALS: BP 114/81; PULSE 62; RESP 18; TEMP 36.5; O2SAT 96
--- NOTE | 2022-06-19 10:49 | W.ANESPOSTOP ---
Postoperative Evaluation Date, Time and Location Date Performed: 06/19/22 Time Performed: 10:24 Patient Location: Day Surgery Unit Vital Signs Most Recent Imported Vital Signs: Most Recent Vital Signs Temp Pulse Resp BP Pulse Ox 36.5 C 56 L 17 110/81 96 06/19/22 10:24 06/19/22 10:24 06/19/22 10:24 06/19/22 10:24 06/19/22 10:24 Pain Score Most Recent Pain Score: Most Recent Pain Score Pain Level 0 06/19/22 10:24 Assessment Mental Status: Awake (Alert & Oriented to Patient Baseline) Airway and Respiratory Function: Patent airway with normal (patient baseline) respiratory exam Cardiovascular Function: Hemodynamically Stable Hydration Status: Adequately Hydrated Nausea & Vomiting: No Nausea or Vomiting Pain: Pt. Denies Any Pain Peripheral Nerve Block: Patient did not receive a nerve block
== END 2022-06-19 11:14 | disposition home or self-care (01) ==
PROVIDERS: PCP Internal Medicine; Visit Provider Surgery
PROC: 0DJD8ZZ Inspection of Lower Intestinal Tract, Via Natural or Artificial Opening Endoscopic (ICD-10-PCS; CPT 45378; principal; 2022-06-19 09:45)
DX: Z12.11 Encounter for screening for malignant neoplasm of colon (principal); K63.5 Polyp of colon; Z86.010 Personal history of colon polyps
CPT/HCPCS: 45380; 88305

== ENCOUNTER → 2022-07-02 10:51 | Outpatient (BNVA) | payer OTHER, SELFPAY | PROVIDERS: PCP Internal Medicine; Referring Provider Internal Medicine; Visit Provider Nurse Practitioner Adult Health | DX: M54.2 Cervicalgia (principal); G89.29 Other chronic pain | CPT/HCPCS: 64405 ==

== ENCOUNTER 2022-07-10 09:14 | Outpatient (REF) | payer OTHER, SELFPAY ==
[2022-07-10 15:06] LABS: Anion Gap 8.2 mmol/L (3-11); BUN 13 mg/dL (7-18); CO2 28.8 mmol/L (21.0-32.0); CREATININE 0.8 mg/dL (0.70-1.30); Calcium 9.3 mg/dL (8.5-10.1); Chloride 102 mmol/L (98-107); Glucose 126 mg/dL (74-106); Potassium 5.1 mmol/L (3.5-5.1); Sodium 139 mmol/L (136-145)
== END 2022-07-10 09:15 | disposition home or self-care (01) ==
LOC: NCHCN 09:14
PROVIDERS: PCP Internal Medicine; Visit Provider Internal Medicine
DX: M50.10 Cervical disc disorder with radiculopathy, unspecified cervical region (principal); E87.5 Hyperkalemia; I25.10 Atherosclerotic heart disease of native coronary artery without angina pectoris; R03.0 Elevated blood-pressure reading, without diagnosis of hypertension
CPT/HCPCS: 80048; 82533

== ENCOUNTER → 2022-07-30 09:40 | Outpatient (BNVA) | payer OTHER, SELFPAY | PROVIDERS: PCP Internal Medicine; Referring Provider Internal Medicine; Visit Provider Nurse Practitioner Adult Health | DX: M54.2 Cervicalgia (principal); G89.29 Other chronic pain | CPT/HCPCS: 64405 ==

== ENCOUNTER → 2022-08-27 09:35 | Outpatient (BNVA) | payer OTHER, SELFPAY | PROVIDERS: PCP Internal Medicine; Referring Provider Internal Medicine; Visit Provider Nurse Practitioner Adult Health | DX: G54.2 Cervical root disorders, not elsewhere classified (principal); G89.29 Other chronic pain | CPT/HCPCS: 64405 ==

== ENCOUNTER → 2022-09-29 12:30 | Outpatient (BNVA) | payer OTHER, SELFPAY | PROVIDERS: PCP Internal Medicine; Referring Provider Internal Medicine; Visit Provider Nurse Practitioner Adult Health | DX: G44.52 New daily persistent headache (NDPH) (principal); M54.2 Cervicalgia; G89.29 Other chronic pain | CPT/HCPCS: 64405 ==

== ENCOUNTER → 2022-10-28 10:01 | Outpatient (BNVA) | payer OTHER, SELFPAY | PROVIDERS: PCP Internal Medicine; Referring Provider Internal Medicine; Visit Provider Nurse Practitioner Adult Health | DX: M54.2 Cervicalgia (principal); G89.29 Other chronic pain | CPT/HCPCS: 64405 ==

== ENCOUNTER → 2022-11-25 12:58 | Outpatient (BNVA) | payer OTHER, SELFPAY | PROVIDERS: PCP Internal Medicine; Referring Provider Internal Medicine; Visit Provider Nurse Practitioner Adult Health | DX: R51.9 Headache, unspecified (principal); M54.2 Cervicalgia; G89.29 Other chronic pain | CPT/HCPCS: 64405 ==

== ENCOUNTER → 2022-12-23 10:49 | Outpatient (BNVA) | payer OTHER, SELFPAY | PROVIDERS: PCP Internal Medicine; Referring Provider Internal Medicine; Visit Provider Nurse Practitioner Adult Health | DX: R51.9 Headache, unspecified (principal); M54.2 Cervicalgia; G89.29 Other chronic pain | CPT/HCPCS: 64405 ==

== ENCOUNTER 2023-01-12 11:03 | Outpatient (REF) | payer OTHER, SELFPAY ==
[2023-01-12 17:20] LABS: Abs Immature Grans 0.06 10^3/uL (0.0-0.06); Absolute Basophil Count 0.06 10^3/uL (0.0-0.2); Absolute Eosinophil Count 0.01 10^3/uL (0.0-0.7); Absolute Lymphocyte Count 1.13 10^3/uL (1.2-3.4); Absolute Monocyte Count 0.41 10^3/uL (0.1-0.8); Absolute Neutrophil Count 4.67 10^3/uL (1.2-6.7); Basophils % 0.9; Eosinophils % 0.2; HCT 51.2 % (40.0-50.0); HGB 17.1 g/dL (13.5-17.5); Immature Grans % 0.9; Lymphocytes % 17.8; MCH 30.2 pg (27.0-33.0); MCHC 33.4 % (32.0-36.0); MCV 90 fL (80-95); MPV 10.1 fL (8.0-11.0); Monocytes % 6.5; Neutrophils % 73.7; Platelet Count 247 10^3/uL (130-400); RBC 5.67 10^6/uL (4.36-5.78); RDW 13.1 % (11.8-14.1); RDW-SD 43.7 fL; WBC 6.34 10^3/uL (4.4-10.8)
[2023-01-12 17:38] LABS: ALT 30 U/L (16-63); AST 24 U/L (15-37); Albumin 4.9 g/dL (3.4-5.0); Alkaline Phosphatase 83 U/L (46-116); Anion Gap 9.3 mmol/L (3-11); BUN 8 mg/dL (7-18); Bilirubin, Total 0.8 mg/dL (0.2-1.0); CO2 29.7 mmol/L (21.0-32.0); CREATININE 0.8 mg/dL (0.70-1.30); Calcium 9.9 mg/dL (8.5-10.1); Chloride 100 mmol/L (98-107); Glucose 115 mg/dL (74-106); Sodium 139 mmol/L (136-145); Total Protein 8.4 g/dL (6.4-8.2)
[2023-01-12 17:44] LABS: Hemoglobin A1C 5.7 % (<5.7)
[2023-01-13 19:11] LABS: PSA, Screening 7.3 ng/mL (<=4.5)
[2023-01-14 14:19] LABS: Albumin 66.1 % (55.8-66.1); Albumin g/dL 5.6 g/dL (3.6-5.2); Total Protein 8.4 g/dL (6.3-8.2)
== END 2023-01-12 11:04 | disposition home or self-care (01) ==
LOC: NCHCN 11:03
PROVIDERS: PCP Internal Medicine; Visit Provider Internal Medicine
DX: R73.03 Prediabetes (principal); R03.0 Elevated blood-pressure reading, without diagnosis of hypertension; G89.29 Other chronic pain; R51.9 Headache, unspecified; R63.4 Abnormal weight loss; E87.5 Hyperkalemia; I25.10 Atherosclerotic heart disease of native coronary artery without angina pectoris
CPT/HCPCS: 80053; 84153; 83036; 84165; 85025

== ENCOUNTER → 2023-01-14 14:48 | Outpatient (BNVA) | payer OTHER, SELFPAY | PROVIDERS: PCP Internal Medicine; Visit Provider Nurse Practitioner Adult Health | DX: M54.2 Cervicalgia (principal); G89.29 Other chronic pain | CPT/HCPCS: 64405 ==

== ENCOUNTER → 2023-02-12 15:28 | Outpatient (BNVA) | payer OTHER, SELFPAY | PROVIDERS: PCP Internal Medicine; Referring Provider Internal Medicine; Visit Provider Nurse Practitioner Adult Health | DX: R51.9 Headache, unspecified (principal); M54.2 Cervicalgia; G89.29 Other chronic pain | CPT/HCPCS: 64405 ==

== ENCOUNTER → 2023-03-10 10:16 | Outpatient (BNVA) | payer OTHER, SELFPAY | PROVIDERS: PCP Internal Medicine; Referring Provider Internal Medicine; Visit Provider Nurse Practitioner Adult Health | DX: R51.9 Headache, unspecified (principal); M54.2 Cervicalgia; G89.29 Other chronic pain | CPT/HCPCS: 64405 ==

== ENCOUNTER → 2023-04-09 10:53 | Outpatient (BNVA) | payer OTHER, SELFPAY | PROVIDERS: PCP Internal Medicine; Referring Provider Internal Medicine; Visit Provider Nurse Practitioner Adult Health | DX: R51.9 Headache, unspecified (principal); M54.2 Cervicalgia; G89.29 Other chronic pain | CPT/HCPCS: 64405; 99213 ==

== ENCOUNTER 2023-04-16 10:55 | Outpatient (REF) | payer OTHER, SELFPAY ==
[2023-04-16 22:26] LABS: PSA, Diagnostic 6.1 ng/mL (<=4.5)
== END 2023-04-16 10:56 | disposition home or self-care (01) ==
LOC: NCHCN 10:55
PROVIDERS: PCP Internal Medicine; Visit Provider Internal Medicine
DX: R97.20 Elevated prostate specific antigen [PSA] (principal)
CPT/HCPCS: 84153

== ENCOUNTER → 2023-05-26 12:15 | Outpatient (BNVA) | payer OTHER, SELFPAY | PROVIDERS: PCP Internal Medicine; Referring Provider Internal Medicine; Visit Provider Psychiatry & Neurology Neurology | DX: M54.2 Cervicalgia (principal); G89.29 Other chronic pain | CPT/HCPCS: 64405 ==

== ENCOUNTER → 2023-06-25 12:59 | Outpatient (BNVA) | payer OTHER, SELFPAY | PROVIDERS: PCP Internal Medicine; Referring Provider Internal Medicine; Visit Provider Psychiatry & Neurology Neurology | DX: R20.8 Other disturbances of skin sensation (principal); T40.2X5A Adverse effect of other opioids, initial encounter; M54.2 Cervicalgia | CPT/HCPCS: 99214 ==

== ENCOUNTER 2023-10-15 13:12 | Outpatient (REF) | payer OTHER, SELFPAY ==
[2023-10-15 18:03] LABS: Hemoglobin A1C 5.5 % (<5.7)
== END 2023-10-15 13:13 | disposition home or self-care (01) ==
LOC: NCHCN 13:12
PROVIDERS: PCP Internal Medicine; Visit Provider Family Medicine
DX: R73.03 Prediabetes (principal); R97.20 Elevated prostate specific antigen [PSA]
CPT/HCPCS: 83036; 84153

== ENCOUNTER → 2023-10-20 12:50 | Outpatient (BNVA) | payer OTHER, SELFPAY | PROVIDERS: PCP Internal Medicine; Referring Provider Internal Medicine; Visit Provider Urology | DX: R35.1 Nocturia (principal); R97.20 Elevated prostate specific antigen [PSA]; Z80.42 Family history of malignant neoplasm of prostate | CPT/HCPCS: 99215 ==

== ENCOUNTER → 2023-11-10 14:42 | Outpatient (BNVA) | payer OTHER, SELFPAY | PROVIDERS: PCP Family Medicine; Visit Provider Nurse Practitioner Adult Health | DX: M54.2 Cervicalgia (principal); G89.29 Other chronic pain | CPT/HCPCS: 99213 ==

== ENCOUNTER → 2024-01-18 12:22 | Outpatient (CLI) | payer OTHER, SELFPAY ==
--- NOTE | 2024-01-18 13:39 | DI.RAD_ITS ---
Exam(s) XR FOOT RT COMPLETE EXAM: XR FOOT RT COMPLETE CLINICAL HISTORY: PAIN RT FOOT M79.671. TECHNIQUE: 2D digital imaging was performed of the right foot. Three images were obtained. AP, obl ique and lateral views were obtained. COMPARISON: No exams were available for comparison FINDINGS: BONES: No acute fracture is present. No bony destructive lesion is seen. There is an enthesophyte at the posterior calcaneus. There are hammertoe deformities of the 2nd through 4th toes. JOINTS: No dislocation present. There are degenerative changes seen at the 1st MTP joint characterize d by joint space narrowing and osteophytes. There is a mild hallux valgus deformity. SOFT TISSUE: Normal. IMPRESSION: Mild hallux valgus deformity and degenerative changes of the 1st MTP joint. DATA REPOSITORY: RADIATION DOSE DELIVERED:
== END ==
PROVIDERS: PCP Family Medicine; Visit Provider Family Medicine
DX: M79.671 Pain in right foot (principal)
CPT/HCPCS: 73630

== ENCOUNTER 2024-02-23 02:00 | Outpatient (CLI) | payer OTHER, SELFPAY ==
[2024-02-25 10:12] LABS: Free PSA/PSA Ratio 0.07 ratio
== END 2024-02-23 02:01 | disposition home or self-care (01) ==
LOC: LBO 02:00
PROVIDERS: PCP Family Medicine; Visit Provider Urology
DX: R97.20 Elevated prostate specific antigen [PSA] (principal)
CPT/HCPCS: 36415; 84154

== ENCOUNTER → 2024-03-01 11:12 | Outpatient (BNVA) | payer OTHER, SELFPAY | PROVIDERS: PCP Family Medicine; Referring Provider Internal Medicine; Visit Provider Urology | DX: N42.89 Other specified disorders of prostate (principal); R97.20 Elevated prostate specific antigen [PSA] | CPT/HCPCS: 99213 ==

== ENCOUNTER → 2024-03-14 08:15 | Outpatient (BNVA) | payer OTHER, SELFPAY | PROVIDERS: PCP Family Medicine; Referring Provider Family Medicine; Visit Provider Podiatrist | DX: M79.671 Pain in right foot (principal); Q66.71 Congenital pes cavus, right foot; G62.9 Polyneuropathy, unspecified; R20.2 Paresthesia of skin | CPT/HCPCS: 20600; J0702; J1100 ==

== ENCOUNTER 2024-04-26 10:12 | Outpatient (CLI) | payer OTHER, SELFPAY ==
[2024-04-26 10:48] LABS: ALT 24 U/L (16-63); AST 16 U/L (15-37); Albumin 4.5 g/dL (3.4-5.0); Alkaline Phosphatase 81 U/L (46-116); Anion Gap 7.7 mmol/L (3-11); BUN 9 mg/dL (7-18); Bilirubin, Total 0.69 mg/dL (0.2-1.0); CO2 30.3 mmol/L (21.0-32.0); CREATININE 0.7 mg/dL (0.70-1.30); Calcium 9.7 mg/dL (8.5-10.1); Calculated LDL 138 mg/dL (<100); Chloride 103 mmol/L (98-107); Cholesterol 255 mg/dL (<200); Estimated GFR 99.12 (mL/min/1.73m2); Glucose 93 mg/dL (74-106); HDL Cholesterol 93 mg/dL (40-60); Potassium 4.8 mmol/L (3.5-5.1); Sodium 141 mmol/L (136-145); Total Protein 7.9 g/dL (6.4-8.2); Triglyceride 120 mg/dL (<150)
[2024-04-26 10:51] LABS: Hemoglobin A1C 5.6 % (<5.7)
== END 2024-04-26 10:13 | disposition home or self-care (01) ==
LOC: LBO 10:13
PROVIDERS: PCP Family Medicine; Visit Provider Family Medicine
DX: R03.0 Elevated blood-pressure reading, without diagnosis of hypertension (principal); R73.03 Prediabetes
CPT/HCPCS: 36415; 80053; 80061; 83036

== ENCOUNTER 2024-04-27 00:34 | Outpatient (CLI) | payer OTHER, SELFPAY ==
--- NOTE | 2024-04-27 07:05 | DI.US_ITS ---
Exam(s) US AAA SCREENING EXAM: US AAA SCREENING CLINICAL HISTORY: EX SMOKER, Z87.891, SCREENING AAA COMPARISON: US CAROTID ULTRASOUND from 01/15/2011 FINDINGS: There is no evidence of abdominal aortic aneurysm. Aortic dimension measurements are within normal l imits. Visualized common iliac arteries also exhibit normal diameters. Incidentally noted is a 1.1 x 0.8 x 1.1 cm non-cystic lesion in the left lobe of the liver. This als o does not have the appearance of a typical benign hemangioma. IMPRESSION: No evidence of abdominal aortic aneurysm. Incidental note of an 11 x 8 x 11 mm liver lesion which does not have the appearance of a simple cyst s nor of a typical benign hemangioma. Recommend further imaging contrast infused abdominal MRI. DATA REPOSITORY:
== END 2024-04-27 00:54 ==
LOC: DI 00:34
PROVIDERS: PCP Family Medicine; Visit Provider Family Medicine
DX: Z13.6 Encounter for screening for cardiovascular disorders (principal); Z87.891 Personal history of nicotine dependence
CPT/HCPCS: 76706

== ENCOUNTER 2024-08-26 01:12 | Outpatient (CLI) | payer MEDICARE, SELFPAY ==
[2024-08-29 14:26] LABS: Free PSA/PSA Ratio 0.06 ratio
== END 2024-08-26 01:13 | disposition home or self-care (01) ==
LOC: LBO 01:12
PROVIDERS: PCP Family Medicine; Visit Provider Urology
DX: R97.20 Elevated prostate specific antigen [PSA] (principal)
CPT/HCPCS: 36415; 84154

== ENCOUNTER 2024-08-30 01:56 | Outpatient (CLI) | payer MEDICARE, SELFPAY ==
--- NOTE | 2024-08-30 | DI.MRI_ITS ---
Exam(s) MR ABDOMEN WO/W EXAM: MR ABDOMEN WO/W CLINICAL HISTORY: K76.9 Liver disease unspecified TECHNIQUE: Multiplanar multisequence MRI was performed with both pre and post contrast infused seque nces. Contrast injected sequences were performed following IV injection of 14 cc of Dotarem. COMPARISON: No exams were available for comparison FINDINGS: VISUALIZED LUNG BASES: No pleural effusions evident. There is no ascites evident. LIVER: The recently described finding on the ultrasound in the left hepatic lobe is subcapsular in lo cation and measures approximately 1.4 x 0.9 cm. It is subcapsular in location, well-defined, and T1 hypointense and T2 hyperintense. Following IV contrast injection it 1st Carissa enhances peripherally an d is filled in by 5 minutes, most probably a small cavernous hemangioma. There is a tiny 2 millimete r cyst noted in the superior aspect of the right hepatic lobe. BILIARY: There is no obvious gallbladder pathology. The CBD is not dilated. PANCREAS: There is a bilobed nonenhancing cystic lesion in the anterior aspect of the pancreatic body which measures approximately 2 cm x 1.2 cm and with probable connection to the main pancreatic duct ( which is not dilated). Probable side branches cystic neoplasm. SPLEEN: Spleen is not enlarged and there are no intrasplenic lesions.Splenic and portal veins are pat ent ADRENALS: There are no significant adrenal masses. KIDNEYS: No solid renal masses. No hydronephrosis.No cysts evident. ABDOMINAL AORTA: Not enlarged and there is no significant para-aortic adenopathy. ANTERIOR ABDOMINAL WALL/GI: There is no evidence of significant anterior abdominal wall hernia in the field of view of this study.Is no evidence of obvious bowel obstruction. OSSEOUS: There are no lytic osseous lesions in the field of view of this study. No evidence of bowel obstruction. IMPRESSION: 1. There is a 1.4 x 0.9 cm subcapsular benign-appearing lesion in the left hepatic lobe which has ayla earance of probable benign cavernous hemangioma. 2. There is a cystic pancreatic lesion measuring 2 x 1.2 cm in the pancreatic body as described above which is probably by a side-branch cystic neoplasm versus is intrapancreatic pseudocyst. This should undergo repeat MRI in 1 year. Alternatively endoscopic ultrasound/FNA can be performed References: Delmer ODELL et all. Management of incidental pancreatic cysts: A white paper of the ACR in cidental findings committee. Journal [employer] 2017; 14 (7) pages 911-922 DATA REPOSITORY:
[2024-08-30] MEDS: Gadoterate meglumine 20 ML VIAL 14 ML IVP (08:23)
[2024-08-30] MEDS: Normal Saline - Diluent 50 ML VIAL 25 ML IJ (08:24)
--- NOTE | 2024-08-30 16:34 | DI.VRAD_ITS ---
PROCEDURE INFORMATION: Exam: MR Abdomen Without and With Contrast Exam date and time: 08/30/2024 7:45 AM Age: 68 years old Clinical indication: Liver disease, pancreas lesions TECHNIQUE: Imaging protocol: Magnetic resonance imaging of the abdomen without and with contrast. Contrast material: DOTAREM; Contrast volume: 14 ml; Contrast route: INTRAVENOUS (IV); COMPARISON: US AAA SCREENING 04/27/2024 7:06 AM FINDINGS: Liver: A few scattered simple cysts 2-3 mm each in the liver and 13 mm hemangioma in the lateral segment left lobe. Gallbladder and biliary ducts: Unremarkable. No stones. No ductal dilation. Pancreas: Bilobed nonenhancing cystic lesion in the pancreatic body measuring 2 cm by 12 mm in total diameter with a probable connection to the main pancreatic duct, which is nondilated. This is most compatible with a side-branch cystic neoplasm or pseudocyst from prior pancreatitis. Spleen: Unremarkable. No splenomegaly. Adrenal glands: Unremarkable. No mass. Kidneys: Unremarkable. No solid mass. No hydronephrosis. Stomach and bowel: Visualized stomach and intestines are unremarkable. Intraperitoneal space: No free fluid. Vasculature: No abdominal aortic aneurysm. Lymph nodes: No enlarged nodes. Bones/joints: Unremarkable. No suspicious lesions. Soft tissues: Unremarkable. IMPRESSION: 1. Pancreatic cystic lesion as above. Reimaging every 1 year for 5 years, then every 2 years for 4 years is recommended. Alternatively, EUS/FNA is recommended. (Reference: Delmer, 2017) References: Delmer ODELL, et al. Management of Incidental Pancreatic Cysts: A White Paper of the ACR Incidental Findings Committee. J Am [employer]rien Radiol. 2017;14(7):911-923. 2. Benign simple cysts and hemangiomas in the liver. These do not need additional follow-up. Dictated and Authenticated by: Alycia Mccurdy MD. Orderin Gloria Rich MD
== END 2024-08-30 02:16 ==
LOC: DI 01:56
PROVIDERS: PCP Family Medicine; Visit Provider Family Medicine
DX: K76.9 Liver disease, unspecified (principal)
CPT/HCPCS: 74183

== ENCOUNTER → 2024-09-02 09:41 | Outpatient (BNVA) | payer MEDICARE, SELFPAY | PROVIDERS: PCP Family Medicine; Visit Provider Urology | DX: N42.89 Other specified disorders of prostate (principal); R97.20 Elevated prostate specific antigen [PSA] | CPT/HCPCS: 99213 ==

== ENCOUNTER 2025-02-15 03:57 | Outpatient (CLI) | payer MEDICARE, SELFPAY | END 2025-02-15 03:58 | disposition home or self-care (01) | LOC: LBO 03:57 | PROVIDERS: PCP Family Medicine; Visit Provider Urology | DX: R97.20 Elevated prostate specific antigen [PSA] (principal) | CPT/HCPCS: 36415; 84154 ==

== ENCOUNTER → 2025-02-23 13:14 | Outpatient (BNVA) | payer MEDICARE, SELFPAY | PROVIDERS: PCP Family Medicine; Visit Provider Urology | DX: R97.20 Elevated prostate specific antigen [PSA] (principal) | CPT/HCPCS: 99213 ==

== ENCOUNTER 2025-03-17 15:10 | Outpatient (CLI) | payer MEDICARE, SELFPAY ==
[2025-03-20 01:09] LABS: B. miyamotoi PCR Negative (Negative); Babesia divergens/MO-1 Negative (Negative); Ehrlichia muris eauclairensis Negative (Negative)
[2025-03-20 09:10] LABS: Lyme Ab w Rflx to Lyme Confirm Negative (Negative)
== END 2025-03-17 15:11 | disposition home or self-care (01) ==
LOC: LBO 15:10
PROVIDERS: PCP Family Medicine; Visit Provider Family Medicine
DX: S80.869S Insect bite (nonvenomous), unspecified lower leg, sequela (principal); W57.XXXS Bitten or stung by nonvenomous insect and other nonvenomous arthropods, sequela
CPT/HCPCS: 36415; 87798; 86618

== ENCOUNTER 2025-03-28 14:56 | Outpatient (REF) | payer MEDICARE, SELFPAY ==
[2025-03-28 15:20] LABS: Abs Immature Grans 0.01 10^3/uL (0.0-0.06); HCT 45.5 % (40.0-50.0); HGB 15.2 g/dL (13.5-17.5); Immature Grans % 0.3 %; MCH 30.9 pg (27.0-33.0); MCHC 33.4 % (32.0-36.0); MCV 93 fL (80-95); MPV 9.5 fL (8.0-11.0); Platelet Count 216 10^3/uL (130-400); RBC 4.92 10^6/uL (4.36-5.78); RDW 13.2 % (11.8-14.1); RDW-SD 45.0 fL; WBC 3.83 10^3/uL (4.4-10.8)
[2025-03-28 16:01] LABS: ALT 25 U/L (16-63); AST 21 U/L (15-37); Albumin 4.1 g/dL (3.4-5.0); Alkaline Phosphatase 83 U/L (46-116); Anion Gap 8.8 mmol/L (3-11); BUN 10 mg/dL (7-18); Bilirubin, Total 0.5 mg/dL (0.2-1.0); CO2 29.2 mmol/L (21.0-32.0); Calcium 8.8 mg/dL (8.5-10.1); Chloride 101 mmol/L (98-107); Estimated GFR 109.05 (mL/min/1.73m2); Glucose 90 mg/dL (74-106); Magnesium 2.1 mg/dL (1.8-2.4); Potassium 4.4 mmol/L (3.5-5.1); Sodium 139 mmol/L (136-145); Total Protein 7.0 g/dL (6.4-8.2); Vitamin B12 339 pg/mL (193-986)
[2025-03-28 22:38] LABS: CRP, High Sensitivity 0.66 mg/L (See Note)
== END 2025-03-28 14:57 | disposition home or self-care (01) ==
LOC: NCHCN 14:56
PROVIDERS: PCP Family Medicine; Visit Provider Family Medicine
DX: G62.9 Polyneuropathy, unspecified (principal)
CPT/HCPCS: 80053; 86141; 82607; 83735; 85025